=== PATIENT | female | born 1980 | race Hispanic/Latino ===

== ENCOUNTER 2017-12-10 22:30 | Emergency (ER) | payer SELFPAY ==
[2017-12-10 22:46] VITALS: RESP 18; TEMP 97.8
--- NOTE | 2017-12-11 02:20 | ED PDOC ---
Arrival/HPI - General Chief Complaint: Alcohol Ingestion Time Seen by Provider: 12/10/17 23:03 Historian: Patient, Partner, EMS - History of Present Illness Narrative History of Present Illness (Text): 12/11/17 02:27 37yr old female presents today BIBA for alcohol usage. pt states she had 3 drinks after work and was waiting for the bus and got tired of standing so she sat down in the snow waiting for the bus. pt states then police arrived and they let her call her boyfriend to get her. She states they made her come to the hospital because she had been drinking earlier. pt denies headaches, dizziness, weakness. denies trauma or injury. denies fall. no cp or sob. no vomiting/diarrhea. denies any complaints. Past Medical History - Provider Review Nursing Documentation Reviewed: Yes - Infectious Disease Hx of Infectious Diseases: None - Reproductive Menopause: No - Psychiatric Hx Substance Use: No - Anesthesia Hx Anesthesia: No Family/Social History - Physician Review Nursing Documentation Reviewed: Yes Family/Social History: Unknown Family HX Smoking Status: Unknown If Ever Smoked Hx Alcohol Use: Yes Frequency of alcohol use: Socially Hx Substance Use: No Allergies/Home Meds Allergies/Adverse Reactions: Allergies peanut Allergy (Verified 12/11/17 01:09) URTICARIA Home Medications: Home Meds Medication Instructions Recorded Confirmed No Known Home Med 12/10/17 12/10/17 Review of Systems - Review of Systems Constitutional: absent: Fatigue, Fevers Respiratory: absent: SOB, Cough Cardiovascular: absent: Chest Pain, Palpitations Gastrointestinal: absent: Abdominal Pain, Nausea, Vomiting Musculoskeletal: absent: Arthralgias Skin: absent: Rash, Pruritis Neurological: absent: Headache Psychiatric: absent: Anxiety, Depression Physical Exam Vital Signs Reviewed: Yes Vital Signs Temp Pulse Resp BP Pulse Ox 12/11/17 01:43 117 H 18 151/100 H 95 12/10/17 22:45 97.8 F 112 H 18 156/97 H 100 Temperature: Afebrile Blood Pressure: Hypertensive Pulse: Tachycardic Respiratory Rate: Normal Appearance: Positive for: Well-Appearing, Non-Toxic, Comfortable Pain Distress: None Mental Status: Positive for: Alert and Oriented X 3 - Systems Exam Head: Present: Atraumatic. No: Tenderness Pupils: Present: PERRL Extroacular Muscles: Present: EOMI Conjunctiva: Present: Normal Mouth: Present: Moist Mucous Membranes. No: Drooling, Trismus Nose (External): Present: Atraumatic Nose (Internal): Present: Normal Inspection Neck: Present: Normal Range of Motion. No: MIDLINE TENDERNESS, Paraspinal Tenderness Respiratory/Chest: Present: Clear to Auscultation, Good Air Exchange, Other (no ecchymosis). No: Respiratory Distress, Accessory Muscle Use, Tender to Palpation Cardiovascular: Present: Regular Rate and Rhythm, Normal S1, S2. No: Murmurs Abdomen: Present: Normal Bowel Sounds, Other (no ecchymosis). No: Tenderness, Distention, Peritoneal Signs, Rebound, Guarding Back: Present: Normal Inspection, Other (no edema, no erythema; no ecchymosis). No: CVA Tenderness, Midline Tenderness, Paraspinal Tenderness Upper Extremity: Present: Normal Inspection, Normal ROM Lower Extremity: Present: Normal Inspection, Normal ROM Neurological: Present: GCS=15, Speech Normal, Gait Normal Skin: Present: Warm, Dry, Normal Color. No: Rashes Psychiatric: Present: Alert, Oriented x 3 Medical Decision Making ED Course and Treatment: 12/11/17 Patient is nontoxic well-appearing no distress. Admits to drinking 3 alcoholic drinks today. Patient is slightly tachycardic in the emergency room slightly hypertensive. Patient's boyfriend is at bedside. Patient alert and oriented in no distress. I've advised the patient that I would like to give the patient some IV fluids to hydrate the patient and decrease the heart rate. Patient states that she will drink some water but does not want an IV. After a period of observation in the emergency room, the patient still remains slightly tachycardic. She is refusing any testing. She wants to go home. Patient is alert and oriented in no distress. Ambulating with a steady gait. Denies any complaints. Clinically sober. Patient has been advised to not leave the emergency room but has decided to go AGAINST MEDICAL ADVICE. The patient possesses capacity to make decisions and has voiced understanding to all my warnings of potential worsening of the condition for which medical care was sought. I have discussed all known and potential risks and consequences to the patient leaving AGAINST MEDICAL ADVICE. Patient is leaving against medical advise. AMA form signed. witness by JEANIE Carrizales. I have advised both the patient and her boyfriend to make sure that the patient follows up with the primary care physician regarding elevated blood pressure. Advised increasing fluids. Advised immediate return if symptoms worsen or persist or if new concerning symptoms develop or if the patient chooses to continue her care Impression: Alcohol use Return if you wish to continue your care increase fluids follow up with the primary care physician regarding your elevated blood pressure. return immediately if symptoms worsen,persist or if new symptoms develop. Disposition/Present on Arrival - Present on Arrival Any Indicators Present on Arrival: No History of DVT/PE: No History of Uncontrolled Diabetes: No Urinary Catheter: No History of Decub. Ulcer: No History Surgical Site Infection Following: None - Disposition Have Diagnosis and Disposition been Completed?: Yes Diagnosis: Alcohol use Disposition: AGAINST MEDICAL ADVICE Disposition Time: 02:16 Patient Plan: Other (AMA) Condition: GOOD Discharge Instructions (ExitCare): Alcohol Use - When Is Drinking a Problem? Additional Instructions: Return if you wish to continue your care increase fluids follow up with the primary care physician regarding your elevated blood pressure. return immediately if symptoms worsen,persist or if new symptoms develop. Referrals: [facility] at [facility] [place] [Outside] - Follow up with primary Lawson Hammer MD [Staff Provider] - Follow up with primary Forms: [facility] ([place]), WORK NOTE
[2017-12-11 02:59] VITALS: BP 150/101; PULSE 104; O2SAT 99
== END 2017-12-11 02:24 | disposition left against medical advice (07) ==
LOC: ED 22:30
DX: Z72.89 Other problems related to lifestyle (principal)